=== PATIENT | female | born 1985 ===

== ENCOUNTER 2018-07-29 15:17 | Emergency (ER) | payer OTHER ==
[~2018-07-29] VITALS: Ht 170.2 cm; Wt 109.0 kg
[2018-07-29] MEDS ORDERED: MAGNESIUM/ALUMINUM HYDROXIDE/SIMETHICONE 30ML UDC PO ONE (20:00)
[2018-07-29] MEDS ORDERED: VISCOUS LIDOCAINE 2% 15 ML UDC PO ONE (20:00)
[2018-07-29 20:39] LABS: CHLORIDE 106 mEq/L (98-107)
[2018-07-30 00:34] VITALS: BP 115/76
== END 2018-07-30 00:40 | disposition home or self-care (01) ==
LOC: ER 15:17
DX: R07.89 Other chest pain (principal)
CPT/HCPCS: 36415; 84484; 93005; 99284